=== PATIENT | female | born 1960 | race Caucasian/White ===

== ENCOUNTER 2018-08-18 01:53 | Inpatient (IN) | payer MEDICAID, OTHER ==
[~2018-08-18] VITALS: Ht 167.6 cm; Wt 83.9 kg
[2018-08-18] MEDS ORDERED: PANTOPRAZOLE SODIUM 40 MG VIAL IV ONE (02:30)
[2018-08-18] MEDS ORDERED: ONDANSETRON 4 MG/2 ML VIAL IV ONE (02:30)
[2018-08-18] MEDS ORDERED: IV NORMAL SALINE 1000 ML BAG IV ONE (02:30)
[2018-08-18] MEDS ORDERED: MORPHINE SULFATE 2 MG/1 ML DISP.SYRIN IV ONE (02:30)
[2018-08-18] MEDS ORDERED: MORPHINE SULFATE 4 MG/1 ML DISP.SYRIN ONE (02:35)
[2018-08-18] MEDS ORDERED: ONDANSETRON 4 MG/2 ML VIAL ONE (02:35)
[2018-08-18] MEDS ORDERED: PANTOPRAZOLE SODIUM 40 MG VIAL ONE (02:35)
[2018-08-18 02:43] LABS: BASOPHILS % (AUTO) 0.2 % (0.0-2.0); HEMATOCRIT 44.8 % (31.2-41.9); HEMOGLOBIN 15.7 g/dL (10.9-14.3); LYMPHOCYTES # (AUTO) 0.8 K/uL (20.0-40.0); LYMPHOCYTES % (AUTO) 12.5 % (20.5-51.5); MEAN CORPUSCULAR HEMOGLOBIN 37.6 uug (24.7-32.8); MEAN CORPUSCULAR HGB CONC 35 g/dL (32.3-35.6); MEAN CORPUSCULAR VOLUME 107.4 fL (75.5-95.3); MONOCYTES # (AUTO) 0.4 K/uL (2.0-10.0); MONOCYTES % (AUTO) 6.9 % (0.0-11.0); NEUTROPHILS % (AUTO) 80.4 % (38.5-71.5); PLATELET COUNT (AUTO) 289 K/uL (179-408); RED BLOOD CELL COUNT(AUTO) 4.17 MIL/uL (3.63-4.92); WHITE BLOOD COUNT (AUTO) 6.3 K/uL (3.8-11.8)
[2018-08-18 03:07] LABS: CREATININE 1.1 mg/dL (0.6-1.3); POTASSIUM 4.3 mmol/L (3.5-5.1)
[2018-08-18 03:13] LABS: BILIRUBIN,DIRECT 0.1 mg/dL (0.0-0.2); BILIRUBIN,TOTAL 0.6 mg/dL (0.2-1.0); TOTAL PROTEIN, SERUM 8.1 g/dL (6.4-8.2)
[2018-08-18] MEDS ORDERED: LEVOFLOXACIN 750 MG/D5W 150 ML PIGGYBACK IV ONE (03:45)
[2018-08-18] MEDS ORDERED: METRONIDAZOLE 500 MG/NS 100 ML PIGGYBACK IV ONE (03:45)
[2018-08-18] MEDS ORDERED: METRONIDAZOLE 500 MG/NS 100ML 100 ML IV ONE (03:47)
[2018-08-18] MEDS ORDERED: ASPI-605 PO (03:51)
[2018-08-18] MEDS ORDERED: PALB125C PO (03:51)
[2018-08-18] MEDS ORDERED: LETR2.5T PO (03:51)
[2018-08-18] MEDS ORDERED: LEVOFLOXACIN 750MG/D5W 150 ML IV ONE (04:51)
[2018-08-18] MEDS ORDERED: MAGNESIUM HYDROXIDE 30 ML LIQUID UDC PO PRN (05:30)
[2018-08-18] MEDS ORDERED: Z GUARD REMEDY PASTE 57 GM TUBE TOP PRN (05:30)
[2018-08-18] MEDS ORDERED: MORPHINE SULFATE 2 MG/1 ML DISP.SYRIN IV PRN (05:30)
[2018-08-18] MEDS ORDERED: ACETAMINOPHEN 325 MG TABLET PO PRN (05:30)
[2018-08-18] MEDS ORDERED: ONDANSETRON 4 MG/2 ML VIAL IV PRN (05:30)
[2018-08-18 06:01] VITALS: BP 109/55
[2018-08-18] MEDS: IV D5 1/2 NS 1000 ML 1,000 ML IV PRN (06:32)
[2018-08-18] MEDS: PANTOPRAZOLE SODIUM 40 MG VIAL IV SCH (08:45)
[2018-08-18 11:35] VITALS: BP 96/47
[2018-08-18] MEDS: NICOTINE 21 MG/24HR PATCH TD SCH (11:51)
[2018-08-18] MEDS ORDERED: DIATR MEGLU/DIATRIZOATE SODIUM 30 ML SOLUTION ONE (12:42)
[2018-08-18 15:47] VITALS: BP 105/57
[2018-08-18] MEDS ORDERED: MULT-1045 PO (16:01)
[2018-08-18] MEDS ORDERED: CHOL10002 PO (16:02)
[2018-08-18] MEDS ORDERED: OMEG1CAP PO (16:02)
[2018-08-18] MEDS ORDERED: ASCO500T10 PO (16:03)
[2018-08-18 19:23] VITALS: BP 93/44
[2018-08-19] MEDS: IV D5 1/2 NS 1000 ML 1,000 ML IV PRN (00:31)
[2018-08-19 03:24] VITALS: BP 114/53
[2018-08-19 06:36] LABS: BASOPHILS % (AUTO) 0.5 % (0.0-2.0); EOSINOPHILS % (AUTO) 0.5 % (0.0-7.0); HEMATOCRIT 41.9 % (31.2-41.9); HEMOGLOBIN 14.4 g/dL (10.9-14.3); LYMPHOCYTES # (AUTO) 2.1 K/uL (20.0-40.0); LYMPHOCYTES % (AUTO) 32.8 % (20.5-51.5); MEAN CORPUSCULAR HEMOGLOBIN 37.1 uug (24.7-32.8); MEAN CORPUSCULAR HGB CONC 34 g/dL (32.3-35.6); MEAN CORPUSCULAR VOLUME 108.2 fL (75.5-95.3); MONOCYTES # (AUTO) 1.1 K/uL (2.0-10.0); MONOCYTES % (AUTO) 17.9 % (0.0-11.0); NEUTROPHILS # (AUTO) 3.1 K/uL (1.8-8.9); NEUTROPHILS % (AUTO) 48.3 % (38.5-71.5); PLATELET COUNT (AUTO) 265 K/uL (179-408); RED BLOOD CELL COUNT(AUTO) 3.87 MIL/uL (3.63-4.92); WHITE BLOOD COUNT (AUTO) 6.3 K/uL (3.8-11.8)
[2018-08-19 06:52] LABS: CREATININE 0.7 mg/dL (0.6-1.3); PHOSPHOROUS 3.7 mg/dL (2.5-4.9); POTASSIUM 3.4 mmol/L (3.5-5.1)
[2018-08-19 07:00] LABS: THYROID STIMULATING HORMONE 0.298 mIU/mL (0.358-3.740)
[2018-08-19 07:26] LABS: EOSINOPHILS % (MANUAL) 2 % (0-8); LYMPHOCYTES % (MANUAL) 29 % (20-40); MONOCYTES % (MANUAL) 17 % (2-10); NEUTROPHILS % (MANUAL) 52 % (42-75)
[2018-08-19] MEDS: NICOTINE 21 MG/24HR PATCH TD SCH (09:33)
[2018-08-19] MEDS: PANTOPRAZOLE SODIUM 40 MG VIAL IV SCH (09:33)
[2018-08-19 11:50] VITALS: BP 109/59
[2018-08-19] MEDS ORDERED: POTASSIUM CHLORIDE 20 MEQ TAB.PRT.SR PO ONE (12:30)
[2018-08-20] MEDS ORDERED: FAMOTIDINE. 20 MG/2 ML VIAL IV SCH (09:00)
== END 2018-08-19 15:45 | disposition home or self-care (01) | DRG 247 ==
LOC: ER 01:57 → MEDSURG3 05:32
PROVIDERS: ADMIT Registered Nurse; ATTEND Nurse Practitioner Acute Care
DX: K56.600 Partial intestinal obstruction, unspecified as to cause (principal); C79.51 Secondary malignant neoplasm of bone; C50.911 Malignant neoplasm of unspecified site of right female breast; D75.1 Secondary polycythemia; K76.89 Other specified diseases of liver; E66.9 Obesity, unspecified; F17.210 Nicotine dependence, cigarettes, uncomplicated; R73.03 Prediabetes; Z71.3 Dietary counseling and surveillance; Z79.899 Other long term (current) drug therapy; Z80.0 Family history of malignant neoplasm of digestive organs; Z80.3 Family history of malignant neoplasm of breast; Z83.3 Family history of diabetes mellitus; Z82.49 Family history of ischemic heart disease and other diseases of the circulatory system; Z79.82 Long term (current) use of aspirin; Z88.0 Allergy status to penicillin; Z68.29 Body mass index [BMI] 29.0-29.9, adult; Z80.49 Family history of malignant neoplasm of other genital organs; Z79.811 Long term (current) use of aromatase inhibitors
CPT/HCPCS: 36415; 71045; 83690; 83735; 84100; 84443; 85025; 93005; A4663; C9113; G0378; J1956; J2270; J2405; J3490; J7030; Q9963

== ENCOUNTER 2020-05-14 02:42 | Emergency (ER) | payer MEDICAID, OTHER ==
[~2020-05-14] VITALS: Ht 167.6 cm; Wt 81.6 kg
[~2020-05-14 02:42] MED LIST: ASCO500T10 PO; ASPI-605 PO; CHOL10002 PO; LETR2.5T PO; MULT-1045 PO; OMEG1CAP PO; PALB125C PO
[2020-05-14 03:54] LABS: ABG BASE EXCESS -1.3 mmol/L; ABG HCO3 21.9 mmol/L; ABG PCO2 33.1 mmHg (35.0-45.0); ABG PH 7.439 (7.350-7.450); ABG PO2 66.9 mmHg (75.0-100.0); ABG SITE RIGHT RADIAL; ABG TOTAL HEMOGLOBIN 15.5 G/dL (12.0-16.0); COHb 3.8 % (0.5-1.5); MetHb 0.3 % (0.0-1.5); O2Hb 89.6 % (94.0-97.0); VENT MODE Room Air
[2020-05-14 03:58] LABS: BASOPHILS # (AUTO) 0.1 K/uL (0.0-8.0); BASOPHILS % (AUTO) 0.5 % (0.0-2.0); EOSINOPHILS # (AUTO) 0.1 K/uL (0.0-0.7); EOSINOPHILS % (AUTO) 1.1 % (0.0-7.0); HEMATOCRIT 44.2 % (31.2-41.9); HEMOGLOBIN 15.5 g/dL (10.9-14.3); LYMPHOCYTES # (AUTO) 1.5 K/uL (20.0-40.0); LYMPHOCYTES % (AUTO) 12.5 % (20.5-51.5); MEAN CORPUSCULAR HEMOGLOBIN 37.3 uug (24.7-32.8); MEAN CORPUSCULAR HGB CONC 35 g/dL (32.3-35.6); MEAN CORPUSCULAR VOLUME 106.6 fL (75.5-95.3); MONOCYTES # (AUTO) 1.2 K/uL (2.0-10.0); MONOCYTES % (AUTO) 10.3 % (0.0-11.0); NEUTROPHILS # (AUTO) 8.9 K/uL (1.8-8.9); NEUTROPHILS % (AUTO) 75.6 % (38.5-71.5); PLATELET COUNT (AUTO) 361 K/uL (179-408); RED BLOOD CELL COUNT(AUTO) 4.15 MIL/uL (3.63-4.92); WHITE BLOOD COUNT (AUTO) 11.7 K/uL (3.8-11.8)
[2020-05-14 04:19] LABS: CREATININE 0.7 mg/dL (0.6-1.3); POTASSIUM 3.8 mmol/L (3.5-5.1)
[2020-05-14 04:28] LABS: BILIRUBIN,TOTAL 0.5 mg/dL (0.2-1.0); TOTAL PROTEIN, SERUM 8.3 g/dL (6.4-8.2)
--- NOTE | 2020-05-14 04:30 | NUR ---
SPECIMENS FOR RAPID INFLUENZA/RAPID COVID/RESPIRATORY PATHOGEN SENT TO LAB EARLIER, EKG DONE EARLIER/LABS DRAWN EARLIER. PRESENTLY PT AWAITING FOR RESULTS.
[2020-05-14 05:37] LABS: *BILIRUBIN,URIN 1+ (NEGATIVE); *BLOOD, URINE 3+ (NEGATIVE); *CLARITY,URINE CLOUDY (CLEAR); *COLOR,URINE Brown (YELLOW); *KETONES,URINE NEGATIVE (NEGATIVE); LEUKOCYTE ESTERASE ,URINE 1+ (NEGATIVE); NITRITE, URINE POSITIVE (NEGATIVE); PH,URINE 5.5 (5.0-8.0); UGLUCOSE NEGATIVE (NEGATIVE)
--- NOTE | 2020-05-14 06:10 | NUR ---
PT RESTING,AWAITING LAB RESULTS FOR ARACELI MADRIGAL.
--- NOTE | 2020-05-14 06:33 | NUR ---
Patient discharged to home in stable condition. Rx given, able to ambulate with steady gait, took aall belongings. No signs of acute distress. Written and verbal after care instructions given. Patient verbalizes understanding of instructions. Stressed follow up or return to ER for worsening s/s.
[2020-05-14 06:34] VITALS: BP 123/78
[2020-05-14 14:46] LABS: RBC,URINE 20-50 /HPF (0-3)
[2020-05-14 14:48] LABS: BACTERIA,URINE MODERATE /HPF (NONE SEEN); SQUAMOUS EPITHELIAL CELL,UR FEW /HPF (NONE SEEN); URINE AMORPHOUS URATE MANY /HPF
== END 2020-05-14 06:35 | disposition home or self-care (01) ==
LOC: ER 02:45
DX: J20.9 Acute bronchitis, unspecified (principal); Z20.828 Contact with and (suspected) exposure to other viral communicable diseases; N39.0 Urinary tract infection, site not specified; Z88.0 Allergy status to penicillin; F17.210 Nicotine dependence, cigarettes, uncomplicated; C50.911 Malignant neoplasm of unspecified site of right female breast; C79.51 Secondary malignant neoplasm of bone; Z79.82 Long term (current) use of aspirin
CPT/HCPCS: 0099U; 36600; 71045; 80053; 81001; 82550; 82728; 83605; 83615; 83880; 84145; 84484; 85025; 85379; 85385; 86140; 87040 ×2; 87086; 87400; 87426; 93005; 99285; 99406; U0003; 70030-TC; A4663

== ENCOUNTER 2020-08-29 09:54 | Inpatient (IN) | payer OTHER ==
[~2020-08-29] VITALS: Ht 165.1 cm; Wt 77.1 kg
[2020-08-29] MEDS: IV NORMAL SALINE 1000 ML BAG IV ONE ×2 (11:00→11:16)
[2020-08-29] MEDS ORDERED: SWABABLE VALVE TRANSFER SET EA MC ONE (11:00)
[2020-08-29] MEDS ORDERED: IOHEXOL 300MG/ML 100 ML INFUS..BTL ONE (11:01)
[2020-08-29] MEDS ORDERED: IV NORMAL SALINE 250 ML IV ONE (11:01)
[2020-08-29 11:06] LABS: BASOPHILS # (AUTO) 0.1 K/uL (0.0-8.0); BASOPHILS % (AUTO) 1.2 % (0.0-2.0); EOSINOPHILS % (AUTO) 0.7 % (0.0-7.0); HEMATOCRIT 42.1 % (31.2-41.9); HEMOGLOBIN 14.4 g/dL (10.9-14.3); LYMPHOCYTES # (AUTO) 0.9 K/uL (20.0-40.0); LYMPHOCYTES % (AUTO) 17.3 % (20.5-51.5); MEAN CORPUSCULAR HEMOGLOBIN 33.9 uug (24.7-32.8); MEAN CORPUSCULAR HGB CONC 34 g/dL (32.3-35.6); MEAN CORPUSCULAR VOLUME 99.3 fL (75.5-95.3); MONOCYTES # (AUTO) 0.4 K/uL (2.0-10.0); MONOCYTES % (AUTO) 8.5 % (0.0-11.0); NEUTROPHILS # (AUTO) 3.5 K/uL (1.8-8.9); NEUTROPHILS % (AUTO) 72.3 % (38.5-71.5); PLATELET COUNT (AUTO) 400 K/uL (179-408); RED BLOOD CELL COUNT(AUTO) 4.24 MIL/uL (3.63-4.92); WHITE BLOOD COUNT (AUTO) 4.9 K/uL (3.8-11.8)
[2020-08-29 11:15] LABS: CREATININE 0.9 mg/dL (0.6-1.3); POTASSIUM 4.3 mmol/L (3.5-5.1)
--- NOTE | 2020-08-29 11:15 | NUR ---
receved pt walking in c/o abdominal pain wit n/v and diahrea sterted last night abdomin shantel and disyended pt said i feeling ploting examine by dr. ROACH order was give HOB 45 BLOOD drow by lab tach
[2020-08-29 11:18] LABS: MAGNESIUM 2.4 mg/dL (1.8-2.4); PHOSPHOROUS 5.2 mg/dL (2.5-4.9)
[2020-08-29 11:30] LABS: BILIRUBIN,DIRECT 0.1 mg/dL (0.0-0.2); BILIRUBIN,TOTAL 0.5 mg/dL (0.2-1.0); TOTAL PROTEIN, SERUM 8.1 g/dL (6.4-8.2)
--- NOTE | 2020-08-29 12:30 | NUR ---
to ct scan of abdomin with iv contrast
--- NOTE | 2020-08-29 13:00 | NUR ---
COVID SWAB DONE AND SENT TO LAB.
--- NOTE | 2020-08-29 13:50 | NUR ---
UA SENT TO LAB
[2020-08-29 13:59] LABS: *BILIRUBIN,URIN NEGATIVE (NEGATIVE); *BLOOD, URINE NEGATIVE (NEGATIVE); *CLARITY,URINE CLEAR (CLEAR); *COLOR,URINE YELLOW (YELLOW); *KETONES,URINE TRACE (NEGATIVE); *UROBILINOGEN,URINE 0.2 E.U./dl (NORMAL); LEUKOCYTE ESTERASE ,URINE NEGATIVE (NEGATIVE); NITRITE, URINE NEGATIVE (NEGATIVE); PH,URINE 5.5 (5.0-8.0); UGLUCOSE NEGATIVE (NEGATIVE)
[2020-08-29 14:18] LABS: SQUAMOUS EPITHELIAL CELL,UR MODERATE /HPF (NONE SEEN)
[2020-08-29 14:20] LABS: MUCUS,URINE FEW /LPF (0-FEW)
[2020-08-29 14:23] LABS: RBC,URINE 0-3 /HPF (0-3); WBC,URINE NONE SEEN /HPF (0-3)
--- NOTE | 2020-08-29 15:35 | NUR ---
called Dr. Guardado, interventional radiologist.
[2020-08-29] MEDS ORDERED: MORPHINE SULFATE 2 MG/1 ML DISP.SYRIN IV PRN (16:30)
[2020-08-29] MEDS ORDERED: ACETAMINOPHEN 325 MG TABLET PO PRN (16:30)
[2020-08-29] MEDS ORDERED: HYDROCODONE/APAP 5-325MG TABLET PO PRN (16:30)
[2020-08-29] MEDS ORDERED: ZOLPIDEM 5 MG TABLET PO PRN (16:30)
[2020-08-29] MEDS ORDERED: MAGNESIUM HYDROXIDE 30 ML LIQUID UDC PO PRN (16:30)
[2020-08-29] MEDS ORDERED: Z GUARD REMEDY PASTE 57 GM TUBE TOP PRN (16:30)
--- NOTE | 2020-08-29 17:30 | NUR ---
TO ROOM 305 VIA WC VS STABLE BP131/69MMHG HR 76B/MIN RR18/MIN O2 SAT IN ROOM AIR 96% temp 97.2F abdomin distended Hand off to NISSA BERGERON
--- NOTE | 2020-08-29 17:30 | NUR ---
Received patient from the ER in a wheel chair. Patient is in stable condition. No sign of distress noted. Initial vitals taken and ID band placed on patient. Belongings list completed and sign. Skin is intact. Safety measures implemented. Will endorse to oncoming nurse.
[2020-08-29 18:00] VITALS: BP 119/73
--- NOTE | 2020-08-29 19:30 | NUR ---
Received patient in bed, awake, surrounded by family members. Denies any apin/discomforts at this time. Will monitor.
[2020-08-29 19:44] VITALS: BP 120/62
[2020-08-29] MEDS: IV NS 1000 ML 1,000 ML IV PRN (20:33)
[2020-08-30 04:20] VITALS: BP 119/55
--- NOTE | 2020-08-30 05:54 | NUR ---
Shift End Report: Slept good. No complaint presented all night. Ambulatory to the bathroom with 1 person assist due to IV pole. Tolerated IVF well. IV site no redness. No s/s of infiltration. IVF continues. No significant event reported . Continue current plan of acre.
[2020-08-30 07:02] LABS: BASOPHILS % (AUTO) 0.5 % (0.0-2.0); EOSINOPHILS # (AUTO) 0.1 K/uL (0.0-0.7); EOSINOPHILS % (AUTO) 2.1 % (0.0-7.0); HEMATOCRIT 37.9 % (31.2-41.9); HEMOGLOBIN 13.1 g/dL (10.9-14.3); LYMPHOCYTES % (AUTO) 24.5 % (20.5-51.5); MEAN CORPUSCULAR HEMOGLOBIN 34.4 uug (24.7-32.8); MEAN CORPUSCULAR HGB CONC 35 g/dL (32.3-35.6); MEAN CORPUSCULAR VOLUME 99.6 fL (75.5-95.3); MONOCYTES # (AUTO) 0.4 K/uL (2.0-10.0); MONOCYTES % (AUTO) 11.4 % (0.0-11.0); NEUTROPHILS # (AUTO) 2.4 K/uL (1.8-8.9); NEUTROPHILS % (AUTO) 61.5 % (38.5-71.5); PLATELET COUNT (AUTO) 346 K/uL (179-408); RED BLOOD CELL COUNT(AUTO) 3.81 MIL/uL (3.63-4.92); WHITE BLOOD COUNT (AUTO) 3.9 K/uL (3.8-11.8)
[2020-08-30 08:00] VITALS: BP 137/69
[2020-08-30 08:26] LABS: CREATININE 0.7 mg/dL (0.6-1.3); PHOSPHOROUS 3.7 mg/dL (2.5-4.9); POTASSIUM 3.9 mmol/L (3.5-5.1)
[2020-08-30] MEDS: ASPIRIN EC 81 MG TABLET.DR PO SCH (09:10)
[2020-08-30] MEDS: ONDANSETRON 4 MG/2 ML VIAL IV PRN ×2 (10:37→17:26)
[2020-08-30] MEDS: IV NS 1000 ML 1,000 ML IV PRN (10:39)
[2020-08-30] MEDS: PATIENT MAY USE OWN MED- MD OK PO SCH ×2 (13:23→14:07)
--- NOTE | 2020-08-30 13:30 | NUR ---
Patient had ultrasound guided left side paracentesis with 3.8L of fluids extracted.
[2020-08-30 16:00] VITALS: BP 92/64
--- NOTE | 2020-08-30 17:22 | NUR ---
Dry Heat Room Attendant consultation: 4:45pm: Dry Heat Room Attendant consultation completed to assess patient's psychosocial needs. Patient is a 59 year old female who came to the ED on 08/29/20 complaining of nausea, vomiting, diarrhea. Patient has breast cancer with metastasis to liver diagnosed in May. Patient is alert, oriented, sitting up in her hospital bed, and had visitors in her room. Patient was receptive to meeting with this SW. Patient was cooperative throughout this interview, maintained appropriate eye contact, thought process and content were appropriate, speech was clear. Patient lives at [address] [place], [place] [id number] [address]. Patient states she lives with her brother and daughter, and that her family is very supportive. Patient has a regular oncologist that she sees, Dr. Bandar Mays, [address] [facility], [address], [place] [address], . Patient stated that she has an appointment scheduled with her oncologist this coming September 01. Patient stated that she has 2 daughters and they both help with transportation and with taking patient to the doctors office. SW explored patients needs for additional supportive services, and patient stated that she did not need any additional resources at this time, as her family is supportive, involved in care, and she sees her oncologist regularly. Discharge plans discussed, and patient will be returning home. No further SS interventions needed at this time, however SW will remain available, as needed.
--- NOTE | 2020-08-30 18:58 | NUR ---
Patient alert and oriented x 4. on room air. no signs of acute distress. compliant with care and medications. able to make needs known. needs met. will endorse to incoming shift.
[2020-08-30 20:13] VITALS: BP 109/59
[2020-08-31] MEDS: IV NS 1000 ML 1,000 ML IV PRN (01:13)
[2020-08-31] MEDS: ONDANSETRON 4 MG/2 ML VIAL IV PRN (01:55)
[2020-08-31 04:00] VITALS: BP 104/57
--- NOTE | 2020-08-31 04:19 | NUR ---
Patient alert and able to make needs known.On RA.No s/s of distress noted.Iv on left FA 20g patent and intact with IVF NS running well at 75 ml/hr.Patient vomited x1.Zofran IVP given .Denies abdominal pain .Patient ambulates in bathroom voided 2x per patient. Safeyt measures in place.
[2020-08-31] MEDS: ASPIRIN EC 81 MG TABLET.DR PO SCH (08:00)
[2020-08-31] MEDS: PATIENT MAY USE OWN MED- MD OK PO SCH ×2 (08:01→09:15)
[2020-08-31 08:11] VITALS: BP 99/48
[2020-08-31 11:08] VITALS: BP 115/45
--- NOTE | 2020-08-31 12:00 | NUR ---
patient is alert, oriented x4, no sob, resp even nonlabored, skin warm and dry to touch, no nausea, no vomiting noted, patient tolerated breakfast well, ambulatory, self care, stable condition, daughter at bedside, belongings are accounted and signed, patient teaching done in presence of daughter, questions are answered, concerned addressed, per daughter and patient, patient has a follow up apt with her own oncologist tomorrow, patient teaching provided regarding her medications, and follow up with primary doctor, patient and daughter verbalized understanding of it, patient left with daughter, escorted safely to the car. ID band and IV access removed. educated patient if symptoms worsen, go to nearest ER or call 911, Signs and symptoms of dehydration and when to seek medical attention discussed with patient and her daughter, patient and daughter verbalized understanding of it. other daughter called name Delilah, was asking to talk to doctor regarding patient current diagnoses. spoke to patient and to the another daughter sitting next to patient, per daughter sitting next to patient stated, they will communicate other family member, isma Mazariegos. as doctor already had spoken to the patient in the morning.
== END 2020-08-31 12:00 | disposition home or self-care (01) | DRG 281 ==
LOC: ER 09:56 → TELE3 16:12 → MEDSURG3 18:00
PROVIDERS: ADMIT Internal Medicine; ATTEND Internal Medicine
PROC: 0W9G3ZZ Drainage of Peritoneal Cavity, Percutaneous Approach (ICD-10-PCS; principal; 2020-08-30)
DX: C78.7 Secondary malignant neoplasm of liver and intrahepatic bile duct (principal); C79.51 Secondary malignant neoplasm of bone; Z20.822 Contact with and (suspected) exposure to COVID-19; R18.0 Malignant ascites; C78.6 Secondary malignant neoplasm of retroperitoneum and peritoneum; C50.919 Malignant neoplasm of unspecified site of unspecified female breast; E83.39 Other disorders of phosphorus metabolism; C34.90 Malignant neoplasm of unspecified part of unspecified bronchus or lung; F17.210 Nicotine dependence, cigarettes, uncomplicated; Z79.811 Long term (current) use of aromatase inhibitors
CPT/HCPCS: 36415; 70030-TC; 70450; 71045; 83690; 83735; 84100; 85025; 85730; 86300; 93005; A4663; G0378; J2405; J7030; J7050; Q9967